=== PATIENT | male | born 1960 | race Hispanic/Latino ===

== ENCOUNTER 2019-01-01 15:05 | Emergency (ER) | payer MEDICARE ==
[2019-01-01 15:28] VITALS: BP 124/82
[2019-01-01 16:04] LABS: Basophils % (Auto) 0.3 % (0.0-1.8); Eosinophils # (Auto) 0.3 K/mm3 (0.0-0.4); Eosinophils % (Auto) 2.8 % (0.0-4.3); Hematocrit 44.4 % (35.5-45.6); Hemoglobin 15.4 gm/dl (11.8-15.2); Lymphocytes # (Auto) 2.7 K/mm3 (1.2-5.4); Lymphocytes % (Auto) 28.6 % (13.4-35.0); Mean Corpuscular HGB Conc 35 % (32-34); Mean Corpuscular Volume 92 fl (84-94); Monocytes # (Auto) 0.8 K/mm3 (0.0-0.8); Monocytes % (Auto) 8.6 % (0.0-7.3); Platelet Count 381 K/mm3 (140-440); Red Blood Count 4.83 M/mm3 (3.65-5.03); Red Cell Distribution Width 12.3 % (13.2-15.2)
[2019-01-01 16:13] LABS: Bilirubin,Urine NEG (Negative); Blood,Urine NEG (Negative); Color,Urine Yellow (Yellow); Hyaline Casts,Urine 6 /LPF; Mucus,Urine 1+ /HPF; Protein,Urine <15 mg/dL mg/dL (Negative); Urobilinogen,Urine < 2.0 mg/dL (<2.0)
[2019-01-01] MEDS ORDERED: TORADOL IV ONE (16:20)
[2019-01-01] MEDS ORDERED: NACL 0.9% 1000 ML 1,000 ML IV ONE (16:20)
[2019-01-01 16:24] LABS: Alanine Aminotransferase 13 units/L (7-56); Albumin 4.5 g/dL (3.9-5); BUN/Creatinine Ratio 11; Blood Urea Nitrogen 10 mg/dL (9-20); Calcium 10.1 mg/dL (8.4-10.2); Hemolysis Index 15
--- NOTE | 2019-01-01 16:35 | Emergency Department Report ---
ED Abdominal Pain HPI - General Chief Complaint: Abdominal Pain Stated Complaint: (R) FLANK PAIN Time Seen by Provider: 01/01/19 16:08 Source: patient, EMS Mode of arrival: Wheelchair Limitations: No Limitations - History of Present Illness Initial Comments: Pt is a 58-year-old male presents to the emergency room with complaints of right flank and right lower back pain that radiates to the abdomen that began 2 days ago. He states it worsened today. Denies any nausea, vomiting, fever, diarrhea, urinary symptoms, hematuria. Denies any history of kidney stones. States he has never had this before. He has a history of chronic back pain and takes oxycodone daily. He denies any allergies to medications. - Related Data Allergies Allergy/AdvReac Type Severity Reaction Status Date / Time No Known Allergies Allergy Unverified 01/01/19 15:07 ED Review of Systems ROS: Stated complaint: (R) FLANK PAIN Other details as noted in HPI Comment: All other systems reviewed and negative ED Past Medical Hx - Past Medical History Previous Medical History?: Yes Hx Kidney Stones: Yes - Surgical History Past Surgical History?: Yes Additional Surgical History: Spleen - Social History Smoking Status: Current Every Day Smoker Substance Use Type: None ED Physical Exam - General Limitations: No Limitations General appearance: alert, in no apparent distress - Head Head exam: Present: atraumatic, normocephalic - Eye Eye exam: Present: normal appearance - ENT ENT exam: Present: mucous membranes moist - Respiratory Respiratory exam: Present: normal lung sounds bilaterally. Absent: respiratory distress, wheezes, rales, rhonchi, stridor, chest wall tenderness, accessory muscle use, decreased breath sounds, prolonged expiratory - Cardiovascular Cardiovascular Exam: Present: regular rate, normal rhythm, normal heart sounds. Absent: systolic murmur, diastolic murmur, rubs, gallop - GI/Abdominal GI/Abdominal exam: Present: soft, normal bowel sounds. Absent: distended, tenderness, guarding, rebound, rigid - Back Exam Back exam: Absent: CVA tenderness (R), CVA tenderness (L) - Neurological Exam Neurological exam: Present: alert, oriented X3 - Psychiatric Psychiatric exam: Present: normal affect, normal mood - Skin Skin exam: Present: warm, dry, intact ED Course Vital Signs 01/01/19 15:26 Temperature 98.1 F Pulse Rate 79 Respiratory 20 Rate Blood Pressure 124/82 O2 Sat by Pulse 98 Oximetry ED Medical Decision Making - Lab Data Result diagrams: 01/01/19 15:40 01/01/19 15:40 Lab Results 01/01/19 01/01/19 01/01/19 Range/Units 15:39 15:40 15:40 WBC 9.5 (4.5-11.0) K/mm3 RBC 4.83 (3.65-5.03) M/mm3 Hgb 15.4 H (11.8-15.2) gm/dl Hct 44.4 (35.5-45.6) % MCV 92 (84-94) fl MCH 32 (28-32) pg MCHC 35 H (32-34) % RDW 12.3 L (13.2-15.2) % Plt Count 381 (140-440) K/mm3 Lymph % (Auto) 28.6 (13.4-35.0) % [place] % (Auto) 8.6 H (0.0-7.3) % Eos % (Auto) 2.8 (0.0-4.3) % Baso % (Auto) 0.3 (0.0-1.8) % Lymph # 2.7 (1.2-5.4) K/mm3 [place] # 0.8 (0.0-0.8) K/mm3 Eos # 0.3 (0.0-0.4) K/mm3 Baso # 0.0 (0.0-0.1) K/mm3 Seg Neutrophils % 59.7 (40.0-70.0) % Seg Neutrophils # 5.6 (1.8-7.7) K/mm3 Sodium 138 (137-145) mmol/L Potassium 4.1 (3.6-5.0) mmol/L Chloride 100.7 (98-107) mmol/L Carbon Dioxide 27 (22-30) mmol/L Anion Gap 14 mmol/L BUN 10 (9-20) mg/dL Creatinine 0.9 (0.8-1.5) mg/dL Estimated GFR > 60 ml/min BUN/Creatinine Ratio 11 % Glucose 94 (75-100) mg/dL Calcium 10.1 (8.4-10.2) mg/dL Total Bilirubin 0.40 (0.1-1.2) mg/dL AST 17 (5-40) units/L ALT 13 (7-56) units/L Alkaline Phosphatase 56 (35-129) units/L Total Protein 7.9 (6.3-8.2) g/dL Albumin 4.5 (3.9-5) g/dL Albumin/Globulin Ratio 1.3 % Urine Color Yellow (Yellow) Urine Turbidity Slightly-cloudy (Clear) Urine pH 6.0 (5.0-7.0) Ur Specific [place] 1.017 (1.003-1.030) Urine Protein <15 mg/dl (Negative) mg/dL Urine Glucose (UA) Neg (Negative) mg/dL Urine Ketones Neg (Negative) mg/dL Urine Blood Neg (Negative) Urine Nitrite Neg (Negative) Urine Bilirubin Neg (Negative) Urine Urobilinogen < 2.0 (<2.0) mg/dL Ur Leukocyte Esterase Tr (Negative) Urine WBC (Auto) 5.0 (0.0-6.0) /HPF Urine RBC (Auto) 3.0 (0.0-6.0) /HPF U Epithel Cells (Auto) 1.0 (0-13.0) /HPF Hyaline Casts 6 /LPF Urine Mucus 1+ /HPF - Radiology Data Radiology results: report reviewed CT of the abdomen and pelvis without contrast INDICATION: Right flank pain with COMPARISON: None FINDINGS: The lung bases are clear. The liver, spleen, pancreas, adrenal glands and kidneys all appear normal. There are no calculi seen in either kidney. No hydronephrosis or perinephric edema. No gross renal masses. No definite gallbladder or biliary tree abnormality. No fluid or adenopathy in the upper abdomen. There is slight vascular calcification without aneurysm. CT of the pelvis shows a normal appendix. No diverticulosis or diverticulitis. Prostate is not enlarged. No inguinal hernia is seen. No ureteral stones are seen. No stone fragments seen in the bladder. No significant skeletal lesion. IMPRESSION: Negative study. No kidney stones or inflammatory process seen. Automated exposure control was utilized to diminish radiation dose. Signer Name: Andrew Jennings MD Signed: 01/01/2019 5:46 PM Workstation Name: [id number] Transcribed By: REEMA Dictated By: Andrew Jennings MD Electronically Authenticated By: Andrew Jennings MD Signed Date/Time: 08/07/21 1745 - Medical Decision Making Pt is a 58-year-old male presents to the emergency room with complaints of right flank and right lower back pain that radiates to the abdomen that began 2 days ago. He states it worsened today. Denies any nausea, vomiting, fever, diarrhea, urinary symptoms, hematuria. Denies any history of kidney stones. States he has never had this before. He has a history of chronic back pain and takes oxycodone daily. He denies any allergies to medications. vitals are normal. labs WNL. UA WNL. CT abd pelvis shows Negative study. No kidney stones or inflammatory process seen. pt given 1L of fluids and toradol for pain. pt denies any pain currently. most likely acute on chronic back pain. advised pt to drink plenty of fluids. follow up with your spine doctor and a primary care doctor in the next 2-3 days. Return to the emergency room for any new or worsening symptoms. - Differential Diagnosis nephrolithiasis, UTI, pyelonephritis, chronic back pain Critical care attestation.: If time is entered above; I have spent that time in minutes in the direct care of this critically ill patient, excluding procedure time. ED Disposition Clinical Impression: Right flank pain Lower back pain Qualifiers: Chronicity: acute Back pain laterality: right Sciatica presence: without sciatica Qualified Code(s): M54.5 - Low back pain Disposition: TO HOME OR SELFCARE Is pt being admited?: No Does the pt Need Aspirin: No Condition: Stable Instructions: Flank Pain (ED), Chronic Back Pain (ED) Additional Instructions: Drink plenty of fluids. follow up with your spine doctor and a primary care doctor in the next 2-3 days. Return to the emergency room for any new or worsening symptoms. Referrals: DARRIAN RIVERA MD [Primary Care Provider] - 2-3 Days your, spine doctor [Other] - 2-3 Days Time of Disposition: 18:01 Print Language: IS[place]I
--- NOTE | 2019-01-01 17:50 | Cat Scan Report ---
CT of the abdomen and pelvis without contrast INDICATION: Right flank pain with COMPARISON: None FINDINGS: The lung bases are clear. The liver, spleen, pancreas, adrenal glands and kidneys all appea r normal. There are no calculi seen in either kidney. No hydronephrosis or perinephric edema. No jr s renal masses. No definite gallbladder or biliary tree abnormality. No fluid or adenopathy in the up per abdomen. There is slight vascular calcification without aneurysm. CT of the pelvis shows a normal appendix. No diverticulosis or diverticulitis. Prostate is not enlarg ed. No inguinal hernia is seen. No ureteral stones are seen. No stone fragments seen in the bladder. No significant skeletal lesion. IMPRESSION: Negative study. No kidney stones or inflammatory process seen. Automated exposure control was utilized to diminish radiation dose. Signer Name: Andrew Jennings MD Signed: 01/01/2019 5:46 PM Workstation Name: [id number]
== END 2019-01-01 18:23 | disposition home or self-care (01) ==
LOC: ED 15:05
DX: R10.9 Unspecified abdominal pain (principal); M54.5 Low back pain; F17.200 Nicotine dependence, unspecified, uncomplicated; Z87.442 Personal history of urinary calculi; Z98.890 Other specified postprocedural states
CPT/HCPCS: 36415; 74176; 80053; 81001; 85025; 96374; 99284; J1885; J7030